=== PATIENT | male | born 1985 | race Caucasian/White ===

== ENCOUNTER 2019-10-31 07:25 | Outpatient (RCR) | payer OTHER, SELFPAY ==
[2019-10-31 13:37] LABS: Abs Immature Grans 0.01 k/cumm (0.0-0.09); Absolute Basophil Count 0.02 k/cumm (0.0-0.2); Absolute Lymphocyte Count 1.91 k/cumm (1.2-3.4); Absolute Monocyte Count 0.56 k/cumm (0.11-0.7); Absolute Neutrophil Count 4.96 k/cumm (1.2-6.7); Basophils % 0.3; Eosinophils % 1.3; HCT 41.6 % (40.0-50.0); HGB 14.2 g/dL (13.5-17.5); Immature Grans % 0.1 %; Lymphocytes % 25.3; Mean Corp. HGB Concentration 34.1 g/dL (32.0-36.0); Mean Corpuscular Hemoglobin 30.2 pg (27.0-33.0); Mean Corpuscular Volume 88.5 fL (80-95); Mean Platelet Volume 10.7 fL (8.0-11.0); Monocytes % 7.4; Neutrophils % 65.6; Platelet Count 237 x1000/uL (130-400); RBC Distribution Width 13.6 % (11.8-14.1); White Blood Cell Count 7.56 k/cumm (4.4-10.8)
--- NOTE | 2019-10-31 13:40 | NUR.NOTE ---
Picc insertion Nursing Note Risks and Benefits explained to the patient, and all questions were answered. Consent for placement of Picc Line obtained. Ultrasound-guided Single Lumen 4 Fr. Catheter placed using Sherlock 3CG technology and sterile technique into the Left Basilic Vein. The Basilic Vein was cannulated, a wire and dilator were advanced without resistance followed by an 4 Fr. Picc catheter pre cut to 49 cm then advanced to the 2 cm makayla on the catheter. P-wave comparison peaked at the 2 cm makayla using Sherlock 3CG confirmation system confirming placement of the Picc line in the SVC. A biodot was placed then secured with a statlock and Tegaderm dressing. Blood return easily obtained and line flushes easily. The patient tolerated well. Ultrasound images on file.:
[2019-10-31 13:53] LABS: ALT 29 U/L (16-63); AST 21 U/L (15-37); Albumin 3.8 g/dL (3.4-5.0); Alkaline Phosphatase 53 U/L (46-116); Anion Gap 6.3 mmol/L (3-11); BUN 8 mg/dL (7-18); Bilirubin, Total 0.3 mg/dL (0.2-1.0); C-Reactive Protein 0.41 mg/dL (0.0-0.3); CO2 29.7 mmol/L (21.0-32.0); CREATININE 0.95 mg/dL (0.70-1.30); Calcium 8.8 mg/dL (8.5-10.1); Chloride 104 mmol/L (98-107); Glucose 131 mg/dL (74-106); Sodium 140 mmol/L (136-145); Total Protein 7.8 g/dL (6.4-8.2)
== END 2019-11-23 23:59 | disposition home or self-care (01) ==
LOC: INF 07:25
PROVIDERS: Visit Provider Internal Medicine Infectious Disease
DX: H70.93 Unspecified mastoiditis, bilateral (principal)
CPT/HCPCS: 36569; 36592; 80053; 85025; 86140